=== PATIENT | female | born 2000 | race Asian ===

== ENCOUNTER 2022-03-20 01:54 | Inpatient (IN) | payer OTHER ==
[~2022-03-20] VITALS: Ht 152.4 cm; Wt 76.5 kg
[2022-03-20] VITALS (51 sets, daily range): BP systolic 99–156; BP diastolic 55–121
[2022-03-20 02:57] LABS: HEMATOCRIT 37.2 % (36.0-47.0); HEMOGLOBIN 12.7 g/dl (12.0-15.5); MEAN CORPUSCULAR HEMOGLOBIN 31.5 pg (27.0-33.0); MEAN CORPUSCULAR HGB CONC 34.1 g/dl (32.0-36.5); MEAN CORPUSCULAR VOLUME 92.3 fl (80.0-96.0); PLATELET COUNT, AUTOMATED 271 10^3/uL (150-450); RED BLOOD COUNT 4.03 10^6/uL (4.00-5.40); WHITE BLOOD COUNT 14.4 10^3/uL (4.0-10.0)
[2022-03-20] MEDS ORDERED: PRENTAB9 PO (03:08)
[2022-03-20] MEDS ORDERED: LR 1,000 ML IV SCH (05:25)
[2022-03-20] MEDS ORDERED: OXYTOCIN DRIP 30 UNITS in IV 1 EA IV SCH ×2 (05:25→16:25)
[2022-03-20] MEDS ORDERED: LACTATED RINGER'S 1000 ML IV STA (05:25)
[2022-03-20] MEDS ORDERED: TRANEXAMIC ACID INJection 1,000 MG in NS 100 ML IV PRN (05:25)
[2022-03-20] MEDS ORDERED: CARBOPROST TROMETHAMINE 250 MCG/ML AMP IM PRN (05:25)
[2022-03-20] MEDS ORDERED: OXYTOCIN DRIP 30 UNITS in IV 1 EA IV PRN ×6 (05:25)
[2022-03-20] MEDS ORDERED: LIDOCAINE 1% MDV 20ML VIAL INFIL PRN (05:25)
[2022-03-20] MEDS ORDERED: METHYLERGONOVINE MALEATE 0.2 MG/ML VIAL (J2210) IM PRN ×2 (05:25→16:25)
[2022-03-20] MEDS ORDERED: OXYTOCIN INJ 10 UNITS/ML VIAL (J2590) IM PRN (05:25)
[2022-03-20] MEDS ORDERED: OXYTOCIN INJ 10 UNITS/ML VIAL (J2590) IV PRN (05:25)
[2022-03-20] MEDS: LR 1,000 ML IV SCH ×3 (06:13→16:25)
[2022-03-20] MEDS ORDERED: PROMETHAZINE 25MG/ML 1ML VIAL IV ONE (08:40)
[2022-03-20] MEDS ORDERED: BUTORPHANOL 2 MG/ML INJ (J0595) IV ONE (08:40)
[2022-03-20] MEDS ORDERED: FENTANYL 2MCG/ML ROPIVACAINE 0.2% IN 0.9% NACL 100ML IVBAG As Ordered ONE (10:42)
[2022-03-20] MEDS ORDERED: diphenhydrAMINE 50MG/ML VIAL (J1200) IV PRN (11:15)
[2022-03-20] MEDS ORDERED: LR 500 ML IV PRN (11:15)
[2022-03-20] MEDS ORDERED: FENTANYL/ROPIVACAINE/NACL BAG 100 ML EPIDURAL SCH (11:15)
[2022-03-20] MEDS ORDERED: EPIDURAL/PCA KEYS XX PRN (11:15)
[2022-03-20] MEDS ORDERED: ONDANSETRON 4MG 2ML VIAL IV PRN (11:15)
[2022-03-20] MEDS ORDERED: NALOXONE INJ 0.4MG/1ML VIAL (J2310 PER 1MG) IV PRN (11:15)
[2022-03-20] MEDS: ePHEDrine SULFATE 25 MG/5 ML(5MG/ML) SYRINGE IVP PRN ×2 (11:46→12:04)
[2022-03-20] MEDS ORDERED: OXYTOCIN INJ 10 UNITS/ML VIAL (J2590) IV ONE ×2 (14:55→16:25)
[2022-03-20 15:08] LABS: CORD GAS ABE A -8.1; CORD GAS HCO3 A 20.5 MEQ/L; CORD GAS O2 SAT A 27.7 %; CORD GAS PCO2 A 53.6 mmHg; CORD GAS PH A 7.2 UNITS; CORD GAS PO2 A 15.7 mmHg; CORD GAS SBC A 16.5 MEQ/L; CORD GAS TCO2 A 22.1 MEQ/L
[2022-03-20 15:09] LABS: CORD GAS ABE V -5.7; CORD GAS HCO3 V 20.5 MEQ/L; CORD GAS O2 SAT V 65.2 %; CORD GAS PCO2 V 42.8 mmHg; CORD GAS PH V 7.299 UNITS; CORD GAS PO2 V 27.6 mmHg; CORD GAS SBC V 19.1 MEQ/L; CORD GAS TCO2 V 21.9 MEQ/L
[2022-03-20] MEDS ORDERED: ACETAMINOPHEN TAB 650MG DOSE (2X325MG) PO PRN (16:25)
[2022-03-20] MEDS ORDERED: RHOGAM 300 MCG (1500 IU) INJ (J2790) IM SCH (16:25)
[2022-03-20] MEDS ORDERED: IBUPROFEN 600MG TAB PO PRN (16:25)
[2022-03-20] MEDS ORDERED: ANUSOL HC CREAM 30GM TOP PRN (16:25)
[2022-03-20] MEDS ORDERED: DIBUCAINE 1% OINTMENT 30GM TOP PRN (16:25)
[2022-03-20] MEDS ORDERED: OXYTOCIN DRIP 30 UNITS in IV 1 EA IV ONE (16:25)
[2022-03-20] MEDS ORDERED: MOM 30ML SUSPENSION UDC PO PRN (16:25)
[2022-03-20] MEDS ORDERED: METHYLERGONOVINE MALEATE 0.2 MG TAB PO PRN (16:25)
[2022-03-20] MEDS ORDERED: DOCUSATE SODIUM 100MG CAPSULE PO PRN (16:25)
[2022-03-20] MEDS: ACETAMINOPHEN 500 MG TAB PO PRN (21:26)
[2022-03-21] MEDS: LR 1,000 ML IV SCH ×3 (00:25→16:25)
[2022-03-21 05:28] VITALS: BP 109/59
[2022-03-21] MEDS: PRENATAL VITAMINS CHEWABLE TABLET PO SCH (08:18)
[2022-03-21 17:53] VITALS: BP 113/59
[2022-03-21] MEDS: ACETAMINOPHEN 500 MG TAB PO PRN (23:38)
[2022-03-22] MEDS ORDERED: ACET1TAB55 PO (05:46)
[2022-03-22] MEDS ORDERED: COLA100C5 PO (05:46)
[2022-03-22] MEDS ORDERED: IBUP-1022 PO (05:46)
[2022-03-22 05:55] VITALS: BP 104/58
[2022-03-22 07:20] VITALS: BP 104/58
[2022-03-22] MEDS ORDERED: MEASLES,MUMPS,RUBELLA VACCINE INJ (MMR-II) (90707) SC.IMMUN ONE (09:00)
[2022-03-22] MEDS: PRENATAL VITAMINS CHEWABLE TABLET PO SCH (09:38)
== END 2022-03-22 18:00 | disposition home or self-care (01) | DRG 807 ==
LOC: M LDO 01:54 → M LDI 02:21 → M OBS 19:09
PROVIDERS: ADMIT Obstetrics & Gynecology; ATTEND Obstetrics & Gynecology
PROC: 10E0XZZ Delivery of Products of Conception, External Approach (ICD-10-PCS; principal; 2022-03-20)
PROC: 0W8NXZZ Division of Female Perineum, External Approach (ICD-10-PCS; 2022-03-20)
PROC: 0HQ9XZZ Repair Perineum Skin, External Approach (ICD-10-PCS; 2022-03-20)
DX: O48.0 Post-term pregnancy (principal); Z37.0 Single live birth; O42.02 Full-term premature rupture of membranes, onset of labor within 24 hours of rupture; Z3A.41 41 weeks gestation of pregnancy; O69.81X0 Labor and delivery complicated by cord around neck, without compression, not applicable or unspecified; O70.0 First degree perineal laceration during delivery